=== PATIENT | male | born 1965 | race Caucasian/White ===

== ENCOUNTER 2018-10-25 12:58 | Day surgery (SDC) | payer BC ==
[~2018-10-25] VITALS: Ht 172.7 cm; Wt 83.8 kg
[2018-10-25] MEDS ORDERED: OMEGA-3 1000 MG1 CAP PO (13:40)
[2018-10-25] MEDS ORDERED: MULTI VITAMINS1 TAB PO (13:40)
[2018-10-25] MEDS ORDERED: VITAMIN B12 781 TAB PO (13:41)
[2018-10-25] MEDS ORDERED: GLUCOSAMINE & C1 CA2 PO (13:41)
[2018-10-25 13:42] VITALS: BP 137/105; PULSE 82; TEMP 98.4
[2018-10-25 14:35] VITALS: BP 143/98; PULSE 85; TEMP 97.8
--- NOTE | 2018-10-25 14:35 | NUR ---
PT ON CART FROM PROCEDURE ROOM TO BAY 5. PT AMBULATES TO CHAIR FROM CART WITH ASSISTANCE. PT DENIES C/O. VITAL SIGNS STABLE. PT EATING CRACKERS AND DRINKING CRANBERRY JUICE. CALL LIGHT NEXT TO PT. PT IN ROOM.
[2018-10-25 14:50] VITALS: BP 127/88; PULSE 80
--- NOTE | 2018-10-25 14:50 | NUR ---
PT CONTINUES TO DENY C/O. VITAL SIGNS STABLE. CALL LIGHT NEXT TO PT. PT IN ROOM.
[2018-10-25 16:26] VITALS: BP 125/85; PULSE 72
== END 2018-10-25 15:15 | disposition home or self-care (01) ==
LOC: SDCO 12:58 → EDBD 12:58 → SDCO 14:00
DX: Z12.11 Encounter for screening for malignant neoplasm of colon (principal)
CPT/HCPCS: J2250; J2405; J3010; J7030